=== PATIENT | female | born 1950 | race African-American/Black ===

== ENCOUNTER 2022-12-17 07:23 | Emergency (ER) | payer OTHER ==
[2022-12-17 07:37] VITALS: BP 171/91; PULSE 75; RESP 18; TEMP 98.7; BMI 37.1
[2022-12-17] MEDS ORDERED: DEXAMETHASONE SOD PHOSPHATE 10 MG/1 ML VIAL IM ONE (08:05)
[2022-12-17] MEDS ORDERED: diphenhydrAMINE HCL 25 MG CAPSULE (FP) PO ONE ×2 (08:05→08:32)
[2022-12-17] MEDS ORDERED: FAMOTIDINE 10 MG TABLET PO ONE (08:06)
[2022-12-17] MEDS ORDERED: FAMOTIDINE 20 MG TABLET ONE (08:32)
[2022-12-17] MEDS ORDERED: DEXAMETHASONE SOD PHOSPHATE 10 MG/1 ML VIAL ONE ×2 (08:32)
== END 2022-12-17 11:26 | disposition home or self-care (01) ==
LOC: JERFT 07:23
PROC: 3E023GC Introduction of Other Therapeutic Substance into Muscle, Percutaneous Approach (ICD-10-PCS; principal; 2022-12-17)
DX: L29.9 Pruritus, unspecified (principal); T78.40XA Allergy, unspecified, initial encounter; Z20.7 Contact with and (suspected) exposure to pediculosis, acariasis and other infestations
CPT/HCPCS: 96372; 99284-25; J1100